=== PATIENT | male | born 1990 | race Hispanic/Latino ===

== ENCOUNTER 2017-12-15 05:11 | Emergency (ER) | payer OTHER ==
[2017-12-15 05:36] VITALS: BMI 34.0
[2017-12-15 05:38] VITALS: BP 143/88; PULSE 75; RESP 18; TEMP 98.1; O2SAT 98
--- NOTE | 2017-12-15 06:15 | ED PDOC ---
HPI: Chest Pain Time Seen by Provider: 12/15/17 05:29 Chief Complaint (Nursing): Chest Pain History Per: Patient History/Exam Limitations: no limitations Additional History Per: Patient Additional Complaint(s): 26 y/o M presents to ED c/o chest pain that began yesterday afternoon. Pain is described as pressure-like/burning, intermittent, located on left side of sternum, radiates to left scapular area and left arm, aggravated while sleeping (8/10 intensity) and woke him up, currently alleviating and now 3/10 intensity. Pt took 2 tabs of OTC Aleve last night with moderate improvement of pain. No aggravating factors reported. Pt has a Hx of GERD, takes Omeprazole 40mg twice per week, but he explains current pain is not his usual GERD pain. Pt also reports slipping on ice 2 nights ago, falling and landing on his left back. Pt denies fever, headache, SOB, palpitations, orthopnea, N/V, change in bowel movement or recent travel or ill contact. NKDA Meds: Levothyroxine 250ug daily, Omeprazole 40 mg twice weekly. PMHx: hypothyroidism and gastritis. PSHx: denied FHx: maternal grand father of [place] at 43 y/o. SHx: No tobacco, alcohol or rec drugs. Past Medical History Vital Signs: Last Vital Signs Temp 98.1 F 12/15/17 05:36 Pulse 75 12/15/17 05:36 Resp 18 12/15/17 05:36 BP 143/88 12/15/17 05:36 Pulse Ox 98 12/15/17 06:42 - Medical History PMH: Hypothyroidism - Surgical History Surgical History: No Surg Hx - Family History Family History: States: [place] (maternal grand father) - Social History Current smoker - smoking cessation education provided: No Alcohol: None Drugs: Denies - Allergies Allergies/Adverse Reactions: Allergies Allergy/AdvReac Type Severity Reaction Status Date / Time No Known Allergies Allergy Verified 12/15/17 05:36 REGINALD Risk Score for UA/NSTEMI - REGINALD Risk Score Age > 64: NO 3 or more CAD Risk Factors: NO Known CAD (Stenosis greater than 50%): NO Aspirin use in past 7 days: NO Severe Angina: NO EKG ST changes greater than 0.5mm: NO Positive Cardiac Marker: NO REGINALD Score: 0 Risk %: 5% Curb-65 Severity Score - CURB-65 Severity Score Confusion: No Respiratory Rate greater than/equal to 30: No Systolic BP <90 or Diastolic BP less than/equal 60mmHg: No Age >64: No Curb-65 Score: 0 Percentage 30-day mortality: 0.6% Wells Criteria for PE - Wells Criteria for Pulmonary Embolism Clinical Signs and Symptoms of DVT: No P.E is #1 Diagnosis, or Equally Likely: No Heart Rate >100: No Immobilization at least 3 days;Surgery previous 4 weeks: No Previous, objectively diagnosed PE or DVT: No Hemoptysis: No Malignancy w/treatment within 6 months, or palliative: No Total Score: 0 Review of Systems Constitutional: Negative for: Fever, Sweats Eyes: Negative for: Vision Change Cardiovascular: Positive for: Chest Pain. Negative for: Palpitations Respiratory: Negative for: Cough, Shortness of Breath, Hemoptysis, SOB with Exertion Gastrointestinal: Negative for: Nausea, Vomiting, Abdominal Pain, Constipation, Hematochezia Musculoskeletal: Positive for: Back Pain Skin: Negative for: Rash Neurological: Positive for: Weakness. Negative for: Numbness, Incoordination, Change in Speech Physical Exam - Physical Exam Appears: Positive for: Well, No Acute Distress Head Exam: Positive for: ATRAUMATIC, NORMAL INSPECTION Skin: Positive for: Normal Color, Warm Eye Exam: Positive for: Normal appearance ENT: Positive for: Normal ENT Inspection Neck: Positive for: Normal, Supple Cardiovascular/Chest: Positive for: Regular Rate, Rhythm. Negative for: Murmur Respiratory: Positive for: Normal Breath Sounds Gastrointestinal/Abdominal: Positive for: Normal Exam, Bowel Sounds, Soft. Negative for: Tenderness Extremity: Positive for: Normal ROM. Negative for: Tenderness, Pedal Edema - Laboratory Results Result Diagrams: 12/15/17 06:08 12/15/17 06:08 - ECG O2 Sat by Pulse Oximetry: 98 Medical Decision Making Medical Decision Makin26 y/o M with a Hx of hypothyroidism and recent fall, complaining of chest pain. Plan: --EKG --CBC --CMP --Troponin --CXR -Urine drug screen 06:17 EKG was unremarkable (with R Bundle Branch Block). Pt reports no need for immediate pain management. 06:37 CBC and CMP WNL. 06:47 CXR was WNL. Pt will be discharged, Pt reassured on NO heart attack present. Pt instructed to continue OTC Aleve for pain relief. Disposition - Clinical Impression Clinical Impression: Atypical chest pain - Patient ED Disposition Is Patient to be Admitted: No - Disposition Disposition: Routine/Home Disposition Time: 06:50 Condition: STABLE Instructions: Noncardiac Chest Pain (ED) Forms: [facility] (Indonesian) Print Language: WALLISIAN
[2017-12-15 06:22] LABS: BASO # 0.1 K/uL (0.0-0.2); BASO % 1.1 % (0.0-2.0); EOS # 0.2 K/uL (0.0-0.7); EOS % 1.8 % (0.0-4.0); HEMOGLOBIN 14.1 g/dL (12.0-18.0); LYMPH # 2.5 K/uL (1.0-4.3); LYMPH % 29.7 % (20.0-40.0); MEAN CELL VOLUME 93.3 fl (80.0-94.0); MEAN CORPUSCULAR HEMOGLOBIN 32.2 pg (27.0-31.0); MEAN CORPUSCULAR HGB CONC 34.5 g/dL (33.0-37.0); MEAN PLATELET VOLUME 9.2 fl (7.2-11.7); MONO % 11.7 % (0.0-10.0); NEUT # 4.6 K/uL (1.8-7.0); NEUT % 55.7 % (50.0-75.0); NRBC % 0.3 % (0.0-0.0); RBC 4.39 Mil/uL (4.40-5.90); RED CELL DISTRIBUTION WIDTH 13.5 % (11.5-14.5); WHITE BLOOD COUNT 8.3 K/uL (4.8-10.8)
[2017-12-15 06:32] LABS: BLOOD UREA NITROGEN 14 mg/dl (9-20); CALCIUM 9.2 mg/dL (8.4-10.2); GFR AFRICAN-AMERICAN > 60; GFR NON-AFRICAN AMERICAN > 60
[2017-12-15 07:06] LABS: BARBITURATES, UR NEGATIVE (NEGATIVE); BENZODIAZEPINES, UR NEGATIVE (NEGATIVE); OPIATES, UR NEGATIVE (NEGATIVE); PHENCYCLIDINE, UR NEGATIVE (NEGATIVE)
--- NOTE | 2017-12-15 11:20 | RAD ---
HISTORY: chest pain COMPARISON: No prior. TECHNIQUE: Chest PA and lateral FINDINGS: LUNGS: No active pulmonary disease. PLEURA: No significant pleural effusion identified. No pneumothorax apparent. CARDIOVASCULAR: Normal. OSSEOUS STRUCTURES: No significant abnormalities. VISUALIZED UPPER ABDOMEN: Normal. OTHER FINDINGS: None. IMPRESSION: No acute cardiopulmonary disease appreciated.
--- NOTE | 2017-12-15 16:46 | CARD ---
APPROVED REPORT EKG Measurement Heart [id number] <Conclusion> Normal sinus rhythm with sinus arrhythmia Incomplete right bundle branch block Borderline ECG
== END 2017-12-15 06:58 | disposition home or self-care (01) ==
LOC: H.ER 05:11
DX: R07.89 Other chest pain (principal); E03.9 Hypothyroidism, unspecified; K21.9 Gastro-esophageal reflux disease without esophagitis